=== PATIENT | male | born 1955 | race African-American/Black ===

== ENCOUNTER → 2016-05-26 | Outpatient (CLI) | payer MEDICAID ==
[~2016-05-26] MED LIST: ALBUTEROL17 GM; ANTIBIOTIC; AUGMENTIN PO; BACTRIM DS TABL1 TA1 PO; BP MED; CHOLESTEROL MED; CIPRO PO; CIPRO250 MG PO; FLOMAX0.4 M1 PO; HYDROCODON-ACE1 EAC5 PO; HYDROCODON-ACE1 EACH PO; LIPITOR20 MG PO; LISINOPRIL5 MG PO; LORTAB 5/500 TA1 TA2 PO; MONTELUKAST SOD10 MG PO; MOTION SICKNESS25 M4 PO; NO MEDICATIONS; NORCO 7.5-3251 EACH PO; NORVASC10 MG PO; TENCON 50-3251 EACH PO; TYLENOL/CODEINE1 TAB PO
--- NOTE | ~2016-05-26 | CR230 ---
[facility] A Service of [facility] RADIOLOGY TEXT RESULTS PATIENT: NAYANA CAMPOVERDE LOCATION: [facility] : 53 UNIT #: [id number] AGE: [address]: ORQUIDEA GARRETT MD SEX: M ORDER DR: [id number] [facility]. [place], [place] [address] [id number] O MR#: [id number] Acc #: [id number] NAME: NAYANA CAMPOVERDE. : 1955 SEX: M STUDY DATE/TIME: 05/26/2016 11:12 UNIT: [facility] ROOM: STUDY DESCRIPTION: CR Shoulder Min 2 View Rt Attending Physician: Orquidea Garrett M.D. Referring Physician: Orquidea Garrett M.D. Ordering Physician: Orquidea Garrett M.D. Primary Care Physician: Orquidea Garrett M.D. MEDICAL IMAGING REPORT This report is preliminary unless electronic signature is present EXAM Right shoulder 05/26/2016 HISTORY Right shoulder pain for 1 year. No known injury. COMPARISON STUDIES None. FINDINGS 2 views of the right shoulder demonstrate no acute fracture or dislocation. There are moderately advanced degenerative changes of the glenohumeral joint. Prominent marginal osteophyte formation along the inferior humeral head-neck junction. Mild degeneration of the acromioclavicular joint. Soft tissues are unremarkable. IMPRESSION 1. No acute fracture or dislocation. 2. Moderately advanced glenohumeral arthrosis. 3. Mild acromioclavicular joint arthrosis. Dictated by... Josh Cedeño M.D. THIS IS AN ELECTRONICALLY VERIFIED REPORT Josh Cedeño M.D. at 05/28/2016 3:57 PM CORTNEY/demond TD: 05/26/2016 22:08 JOB #: [id number] [facility] A Service [facility] RADIOLOGY TEXT RESULTS PATIENT: NAYANA CAMPOVERDE LOCATION: [facility] : 54 UNIT #: [id number] AGE: [address]: ORQUIDEA GARRETT MD SEX: M ORDER DR: MEDICAL IMAGING REPORT COPY
--- NOTE | ~2016-05-26 | CR229 ---
[facility] A Service of [facility] RADIOLOGY TEXT RESULTS PATIENT: NAYANA CAMPOVERDE [facility] [id number] : 53 UNIT #: [id number] AGE: [address]: ORQUIDEA GARRETT MD SEX: M ORDER DR: [id number] [facility]. [place], [place] [address] [id number] O MR#: [id number] Acc #: [id number] NAME: NAYANA CAMPOVERDE. : 1955 SEX: M STUDY DATE/TIME: 05/26/2016 11:11 UNIT: [facility] ROOM: STUDY DESCRIPTION: CR Shoulder Min 2 View Lt Attending Physician: Orquidea Garrett M.D. Referring Physician: Orquidea Garrett M.D. Ordering Physician: Orquidea Garrett M.D. Primary Care Physician: Orquidea Garrett M.D. MEDICAL IMAGING REPORT This report is preliminary unless electronic signature is present EXAM Left shoulder 05/26/2016 HISTORY 60-year-old male with left shoulder pain for 1 year. COMPARISON STUDIES None. FINDINGS 2 views of the left shoulder demonstrate no acute fracture or dislocation. There are moderately advanced degenerative changes of the glenohumeral joint. Prominent marginal osteophyte along the inferior humeral head-neck junction. Mild degenerative change of the acromioclavicular joint. Soft tissues are unremarkable. IMPRESSION 1. No acute fracture or dislocation. 2. Moderately advanced glenohumeral arthrosis. 3. Mild acromioclavicular joint arthrosis. Dictated by... Josh Cedeño M.D. THIS IS AN ELECTRONICALLY VERIFIED REPORT Josh Cedeño M.D. at 05/28/2016 3:57 PM CORTNEY/demond TD: 05/26/2016 22:05 JOB #: [id number] [facility] A Service [facility] RADIOLOGY TEXT RESULTS PATIENT: NAYANA CAMPOVERDE LOCATION: [facility] #: [id number] : 53 UNIT #: [id number] AGE: [address]: ORQUIDEA GARRETT MD SEX: M ORDER DR: MEDICAL IMAGING REPORT COPY
== END | disposition home or self-care (01) ==
LOC: CRAD 10:48
DX: M25.512 Pain in left shoulder (principal); M19.012 Primary osteoarthritis, left shoulder; M19.011 Primary osteoarthritis, right shoulder
CPT/HCPCS: 73030

== ENCOUNTER → 2016-06-18 | Outpatient (CLI) | payer MEDICAID ==
--- NOTE | ~2016-06-18 | CR63 ---
[facility] A Service of [facility] RADIOLOGY TEXT RESULTS PATIENT: NAYANA CAMPOVERDE LOCATION: [facility] : 54 UNIT #: [id number] AGE: [address]: ORQUIDEA GARRETT MD SEX: M ORDER DR: [id number] [address] [id number] O MR#: [id number] Acc #: [id number] NAME: NAYANA CAMPOVERDE : 1955 SEX: M STUDY DATE/TIME: 06/18/2016 13:36 UNIT: [facility] ROOM: STUDY DESCRIPTION: CR Chest 2 View Attending Physician: Orquidea Garrett M.D. Ordering Physician: Orquidea Garrett M.D. Primary Care Physician: Orquidea Garrett M.D. MEDICAL IMAGING REPORT This report is preliminary unless electronic signature is present EXAM 2-view chest. HISTORY Short of air for the past month. PROCEDURE Frontal and lateral views of the chest. COMPARISON STUDIES 05/08/2016 FINDINGS Heart size is normal. No dense consolidation. No pleural fluid, no pneumothorax. Flattening of the diaphragm. IMPRESSION Flattening of the diaphragm is stable and suggests hyperexpansion. No active process. Dictated by... Ming Diamond M.D. THIS IS AN ELECTRONICALLY VERIFIED REPORT Mnig Diamond M.D. at 06/20/2016 7:15 AM MEME/marilyn TD: 06/18/2016 17:55 JOB #: [id number] [facility] A Service of [facility] RADIOLOGY TEXT RESULTS PATIENT: NAYANA CAMPOVERDE LOCATION: [facility] : 53 UNIT #: [id number] AGE: [address]: ORQUIDEA GARRETT MD SEX: M ORDER DR: MEDICAL IMAGING REPORT Page 1 of 1 COPY
== END | disposition home or self-care (01) ==
LOC: CECH 13:08
DX: R06.09 Other forms of dyspnea (principal); I51.89 Other ill-defined heart diseases
CPT/HCPCS: 71020; 93306

== ENCOUNTER → 2016-07-16 | Day surgery (SDC) | payer MEDICAID ==
--- NOTE | ~2016-07-16 | OR ---
Unit #: [id number] #: [id number] Patient: NAYANA CAMPOVERDE [id number] [address] [id number] O MR#: [id number] NAME: NAYANA CAMPOVERDE ROOM: Date of Procedure: 07/16/2016 Admission Date: 07/16/2016 Surgeon: Deacon Reveles M.D. : 1955 Attending Physician: Deacon Reveles M.D. Primary Care Physician: Jorge Domínguez M.D. OPERATIVE REPORT PREOPERATIVE DIAGNOSIS Colorectal cancer screening in an average-risk patient. PROCEDURES PERFORMED Colonoscopy and biopsy. POSTOPERATIVE DIAGNOSES 1. A sessile polyp in the proximal ascending colon. This was removed using cold biopsy forceps. 2. Mild sigmoid and descending colon diverticulosis. 3. Small internal hemorrhoids. RECOMMENDATIONS 1. Follow up the results of polyp histology. 2. Repeat colonoscopy in 5 years. SEDATION USED MAC. DESCRIPTION OF PROCEDURE Following detailed explanation of the potential risks and complications of a colonoscopy, namely perforation, bleeding, and complication related to sedation, the patient was brought to GI lab and laid in the left lateral decubitus position. A digital rectal examination was performed, which was normal. Lubricated tip of the Olympus video colonoscope was inserted through the anus and advanced under direct vision. The scope was advanced past rectosigmoid into descending colon. Multiple small to medium-sized diverticula were noted in this area. The scope tip was then navigated all the way up to cecum with visualization of the ileocecal valve and the appendiceal orifice. Preparation was fair with good visualization and photodocumentation was obtained. Successive segments of the colonic mucosa were examined upon withdrawal. A single small sessile polyp was noted in the proximal ascending colon. This was removed using cold biopsy forceps. The polyp was sent for histology. No additional polyps were noted. Other than the scant diverticula seen in the left side, the patient was also noted to have small internal hemorrhoids at anal verge. The scope was then withdrawn and the patient returned to the recovery area. He tolerated the procedure without any postprocedure complications. Dictated by... Deacon Reveles M.D. Unit #: [id number] #: [id number] Patient: NAYANA CAMPOVERDE AK/heena TD: 07/16/2016 21:57 JOB #: [id number] OPERATIVE REPORT Page 1 of 1 X Deacon Reveles MD PROCEDURE OPERATIVE NOTE
== END | disposition home or self-care (01) ==
LOC: COPS 10:01
PROVIDERS: Internal Medicine Gastroenterology
PROC: 0DBK8ZX Excision of Ascending Colon, Via Natural or Artificial Opening Endoscopic, Diagnostic (ICD-10-PCS; principal; 2016-07-16 11:30)
DX: Z12.11 Encounter for screening for malignant neoplasm of colon (principal); D12.2 Benign neoplasm of ascending colon; K57.30 Diverticulosis of large intestine without perforation or abscess without bleeding; K64.8 Other hemorrhoids; E11.9 Type 2 diabetes mellitus without complications; F17.200 Nicotine dependence, unspecified, uncomplicated; R33.9 Retention of urine, unspecified; M54.2 Cervicalgia; I73.9 Peripheral vascular disease, unspecified; Z79.899 Other long term (current) drug therapy; Z87.442 Personal history of urinary calculi; Z86.73 Personal history of transient ischemic attack (TIA), and cerebral infarction without residual deficits; Z98.890 Other specified postprocedural states; Z88.1 Allergy status to other antibiotic agents; Z88.8 Allergy status to other drugs, medicaments and biological substances
CPT/HCPCS: 82947; 88305; J2250